=== PATIENT | male | born 1990 | race Caucasian/White ===

== ENCOUNTER 2020-10-24 19:51 | Emergency (ER) | payer OTHER ==
[2020-10-24 20:02] VITALS: BP 146/78; PULSE 109; TEMP 98.1; BMI 36.0
[2020-10-24] MEDS ORDERED: KETOROLAC TROMETHAMINE 30 MG/1 ML VIAL IM ONE (21:57)
[2020-10-24] MEDS ORDERED: KETOROLAC TROMETHAMINE 30 MG/1 ML VIAL ONE (21:58)
[2020-10-24] MEDS ORDERED: DIPHTH,PERTUSS(ACELL),TET 0.5 ML DISP.SYRIN IM ONE ×2 (21:58)
== END 2020-10-24 23:02 | disposition home or self-care (01) ==
LOC: JERFT 19:51
PROC: 3E0234Z Introduction of Serum, Toxoid and Vaccine into Muscle, Percutaneous Approach (ICD-10-PCS; principal; 2020-10-24)
PROC: 3E0333Z Introduction of Anti-inflammatory into Peripheral Vein, Percutaneous Approach (ICD-10-PCS; 2020-10-24)
DX: M25.562 Pain in left knee (principal); S40.812A Abrasion of left upper arm, initial encounter; V86.56XA Driver of dirt bike or motor/cross bike injured in nontraffic accident, initial encounter
CPT/HCPCS: 73562-TC-LT-FY; 90715; 99284-25

== ENCOUNTER 2022-09-17 20:14 | Emergency (ER) | payer OTHER ==
[2022-09-17 20:29] VITALS: BP 144/91; PULSE 108; RESP 19; TEMP 98.2; BMI 35.0
[2022-09-17 21:53] LABS: BASO % 0.4 % (0-2.0); EOS % 2.4 % (0-4.5); HEMATOCRIT 46.6 % (35.4-49); HEMOGLOBIN 15.9 GM/dL (11.7-16.9); LYMPH % 22.8 % (8-40); MCH 30.9 pg (25.7-33.7); MCHC 34.1 g/dl (32.0-35.9); MEAN CELL VOLUME 90.5 fl (80-96); MEAN PLT VOLUME 9.8 fl (7.5-11.1); MONO % 3.8 % (3.8-10.2); NEUT % 70.6 % (42.8-82.8); PLATELET COUNT 223 10^3/uL (134-434); RBC 5.15 M/mm3 (4.00-5.60); RDW 12.9 % (11.9-15.9); WHITE BLOOD COUNT 8.5 K/mm3 (4.0-10.0)
[2022-09-17 21:59] LABS: POTASSIUM 4.8 mmol/L (3.5-5.1)
[2022-09-17 22:01] LABS: BLOOD UREA NITROGEN 11.5 mg/dL (7-18); CALCIUM 9.2 mg/dL (8.5-10.1)
[2022-09-17 22:05] LABS: CREATININE 0.8 mg/dL (0.55-1.3)
[2022-09-17 22:07] LABS: BILIRUBIN,TOTAL 0.3 mg/dL (0.2-1)
== END 2022-09-17 22:47 | disposition home or self-care (01) ==
LOC: JER 20:14
DX: R53.1 Weakness (principal); M23.51 Chronic instability of knee, right knee; M23.52 Chronic instability of knee, left knee; W18.39XA Other fall on same level, initial encounter; Y92.002 Bathroom of unspecified non-institutional (private) residence as the place of occurrence of the external cause
CPT/HCPCS: 36415; 80053; 85025; 93005; 93010; 99284-25